=== PATIENT | female | born 1985 | race Caucasian/White ===

== ENCOUNTER 2016-10-28 12:05 | Emergency (ER) | payer BC, MEDICAID ==
[2016-10-28 12:21] VITALS: BP 107/62
[2016-10-28] MEDS ORDERED: Ibuprofen TAB* 400 MG PO ONE (12:33)
--- NOTE | 2016-10-28 12:39 | UC ---
Cardiac HPI - HPI Summary HPI Summary: started with stabbing pleuritic right sided chest pain while at work today a few hours ago. Worse with deep breath or moving arms. No recent cough, no fever , no trauma, no history of heart disease. No palpitations. Got so bad she had to leave work. No new meds, no stomach upset, no indigestion. No recent travel or bedrest - History of Current Complaint Chief Complaint: UCChestPain Stated Complaint: CHEST PAIN Time Seen by Provider: 10/28/16 12:08 Hx Obtained From: Patient Onset/Duration: Gradual Onset, Lasting Hours - 2 Timing: Constant Initial Severity: Mild Current Severity: Moderate Chest Pain Location: Right Anterior Character: Sharp/Stabbing Aggravating: Position, Movement, Deep Breaths Alleviating: Rest, Position Associated Signs & Symptoms: Positive: Chest Pain. Negative: Anxiety, Recent Stress, Headaches, Numbness, Tingling, Weakness, Dizziness, SOB, Palpitations, Cough, Hemoptysis - Risk Factors Pulmonary Embolism Risk Factors: Oral Contraceptives Cardiac Risk Factors: Negative Atrial Fibrillation: Negative TAD Risk Factors: Negative - Allergy/Home Medications Allergies/Adverse Reactions: Allergies Allergy/AdvReac Type Severity Reaction Status Date / Time No Known Allergies Allergy Verified 12/08/13 17:25 Home Medications: Home Medications Sertraline HCl [Zoloft] 150 mg PO DAILY 10/28/16 [History Confirmed 10/28/16] PMH/Surg Hx/FS Hx/Imm Hx Previously Healthy: Yes - Surgical History Surgical History: Yes Surgery Procedure, Year, and Place: T&A-2014 and repair of deviated septum-2014 - Family History Known Family History: Negative: Cardiac Disease, Hypertension - Social History Occupation: Employed Full-time Lives: With Family Alcohol Use: None Substance Use Type: None Smoking Status (MU): Never Smoked Tobacco Review of Systems Constitutional: Negative Skin: Negative Eyes: Negative ENT: Negative Respiratory: Negative Cardiovascular: Chest Pain - under right breast and along right side of sternum Gastrointestinal: Negative Genitourinary: Negative Motor: Negative Neurovascular: Negative Musculoskeletal: Negative Neurological: Negative Psychological: Negative All Other Systems Reviewed And Are Negative: Yes Physical Exam Triage Information Reviewed: Yes Appearance: Well-Appearing, No Pain Distress, Well-Nourished Vital Signs: Initial Vital Signs Temp 98.2 F 10/28/16 12:15 Pulse 57 10/28/16 12:15 Resp 16 10/28/16 12:15 BP 107/62 10/28/16 12:15 Pulse Ox 100 10/28/16 12:15 Vital Signs Reviewed: Yes Eye Exam: Normal ENT Exam: Normal Neck exam: Normal Respiratory: Positive: Lungs clear, Normal breath sounds, No respiratory distress, No accessory muscle use, Other: - mild tenderness along right sternal border Cardiovascular Exam: Normal Cardiovascular: Positive: RRR, No Murmur Abdominal Exam: Normal Abdomen Description: Positive: Nontender, No Organomegaly, Soft. Negative: Distended, Guarding, Hernia @, Hepatomegaly, McBurney's Point Tenderness, Peritoneal Signs, Pulsatile Mass, Splenomegaly Musculoskeletal Exam: Normal Neurological Exam: Normal Psychological Exam: Normal Skin Exam: Normal Diagnostics - Laboratory Diagnostic Studies Completed/Ordered: EKG and CXR normal - Differential Diagnoses - Chest Pain Differential Diagnosis/HQI/PQRI: Chest Wall, Lower Respiratory Infection, Pulmonary Embolism - Clinical Impression Provider Diagnoses: costochondritis Discharge - Discharge Plan Condition: Stable Disposition: HOME Prescriptions: HYDROcodone/ACETAMIN 5-325 MG* [Napoleon 5-325 TAB*] 1 - 2 tab PO Q6H PRN #14 tab MDD 6 tab PRN Reason: Pain Patient Education Materials: Costochondritis (ED) Forms: *Work Release Referrals: Candelaria Reynaga MD [Primary Care Provider] - Additional Instructions: Take ibuprofen 600-800 mg three times a day and apply heat to sore area
--- NOTE | 2016-10-28 13:11 | RAD ---
Indication: Pleuritic chest pain. 2 views of the chest demonstrate no mediastinal shift. Heart is of normal size and configuration. Lung friedman demonstrate no pleural fluid, pneumonia or pneumothorax. No prior study is available for comparison. IMPRESSION: No active cardiopulmonary disease is noted.
== END 2016-10-28 13:22 | disposition home or self-care (01) ==
LOC: UCCORT 12:05
DX: M94.0 Chondrocostal junction syndrome [Tietze] (principal)
CPT/HCPCS: 71020; 93005; 99212; A9270-GY; G0463

== ENCOUNTER 2017-02-09 09:25 | Emergency (ER) | payer BC, MEDICAID ==
[2017-02-09 09:42] VITALS: BP 111/78
[2017-02-09] MEDS ORDERED: Lidocaine 2% W/EPI 1:100,000* 20 ML MDV INJ ONE (10:06)
--- NOTE | 2017-02-09 10:19 | UC ---
Lower Extremity/Ankle HPI - HPI Summary HPI Summary: 31 yo female stepped on glass yesterday fb senastion left foot Td not upto date but she wishes to hold off on updating it today because tomorrow she has egg collection - History of Current Complaint Chief Complaint: Vikas Stated Complaint: PIECE OF GLASS IN LEFT FOOT Time Seen by Provider: 02/09/17 09:50 Hx Obtained From: Patient Hx Last Menstrual Period: 01/27/17 Onset/Duration: Sudden Onset, Lasting Hours Severity Initially: Mild Severity Currently: Mild Pain Intensity: 2 Pain Scale Used: 0-10 Numeric Aggravating Factor(s): Standing, Ambulation Alleviating Factor(s): Rest, Elevation Able to Bear Weight: Yes - Allergies/Home Medications Allergies/Adverse Reactions: Allergies Allergy/AdvReac Type Severity Reaction Status Date / Time No Known Allergies Allergy Verified 02/09/17 09:36 PMH/Surg Hx/FS Hx/Imm Hx Previously Healthy: Yes - Surgical History Surgical History: Yes Surgery Procedure, Year, and Place: T&A-2014 and repair of deviated septum-2014 - Family History Known Family History: Negative: Cardiac Disease, Hypertension, Diabetes - Social History Alcohol Use: None Substance Use Type: None Smoking Status (MU): Never Smoked Tobacco Review of Systems Constitutional: Negative Skin: Negative Eyes: Negative ENT: Negative Respiratory: Negative Cardiovascular: Negative Gastrointestinal: Negative Genitourinary: Negative Motor: Negative Neurovascular: Negative Musculoskeletal: Negative Neurological: Negative Psychological: Negative All Other Systems Reviewed And Are Negative: Yes Physical Exam Triage Information Reviewed: Yes Appearance: Well-Appearing Vital Signs: Initial Vital Signs Temp 98.4 F 02/09/17 09:37 Pulse 62 02/09/17 09:37 Resp 16 02/09/17 09:37 BP 111/78 02/09/17 09:37 Pulse Ox 99 02/09/17 09:37 Vital Signs Reviewed: Yes Eyes: Positive: Conjunctiva Clear ENT: Positive: Hearing grossly normal. Negative: Nasal congestion, Nasal drainage, Trismus, Muffled/hoarse voice Neck: Positive: Supple Respiratory: Positive: Lungs clear, Normal breath sounds, No respiratory distress, No accessory muscle use Cardiovascular: Positive: RRR, No Murmur, Pulses Normal Musculoskeletal: Positive: ROM Intact, No Edema Neurological: Positive: Alert Psychological Exam: Normal Skin Exam: Other - fb left foot Procedures - Procedure Summary Procedure Summary: PROCEDURE: FOREIGN BODY REMOVAL LEFT FOOT TIME OUT STERILE PREP ANEST WITH 0.5 ML OF 2 % LIDO +EPI REMOVED WITH FORCEPS STERILE DRESSING APPLIED TOLERATED PROCEDURE WELL Lower Extremity Course/Dx - Differential Dx/Diagnosis Provider Diagnoses: FOREIGN BODY REMOVAL LEFT FOOT Discharge - Discharge Plan Condition: Stable Disposition: HOME Patient Education Materials: Soft Tissue Foreign Body (ED) Referrals: Candelaria Reynaga MD [Primary Care Provider] - 1 Week (see your MD re updating tenatus shot) Additional Instructions: warm soapy soaks recheck for concerns of infection Images Feet (Multiple View): 1 - fb
== END 2017-02-09 10:25 | disposition home or self-care (01) ==
LOC: UCCORT 09:25
DX: S90.852A Superficial foreign body, left foot, initial encounter (principal); W45.8XXA Other foreign body or object entering through skin, initial encounter; W25.XXXA Contact with sharp glass, initial encounter; Y93.9 Activity, unspecified; Y92.9 Unspecified place or not applicable
CPT/HCPCS: 28190; 99211; G0463

== ENCOUNTER 2017-03-25 08:55 | Emergency (ER) | payer BC, MEDICAID ==
[2017-03-25 09:28] VITALS: BP 117/72
--- NOTE | 2017-03-25 09:50 | UC ---
Eye Complaint HPI - HPI Summary HPI Summary: left eye redness x 2 days + yellow / white discharge no eye pain, no change in vision - History of Current Complaint Chief Complaint: UCEye Stated Complaint: EYE COMPLAINT Time Seen by Provider: 03/25/17 09:42 Hx Obtained From: Patient Hx Last Menstrual Period: 03/17/17 Onset/Duration: Gradual Onset, Lasting Days - 2, Still Present Timing: Constant Severity Initially: Moderate Severity Currently: Moderate Location of Injury: Conjunctiva - left Aggravating Factor(s): Nothing Alleviating Factor(s): Nothing Associated Signs And Symptoms: Positive: Drainage (Clear), Drainage (Purulent) - left eye. Negative: Photophobia, Vision Impairment Bilateral, Vision Impairment Right, Vision Impairment Left, Fever, Swelling - Allergies/Home Medications Allergies/Adverse Reactions: Allergies Allergy/AdvReac Type Severity Reaction Status Date / Time No Known Allergies Allergy Verified 03/25/17 09:24 PMH/Surg Hx/FS Hx/Imm Hx Previously Healthy: Yes - Surgical History Surgical History: Yes Surgery Procedure, Year, and Place: T&A-2014 and repair of deviated septum-2014 - Family History Known Family History: Negative: Cardiac Disease, Hypertension, Diabetes - Social History Alcohol Use: None Substance Use Type: None Smoking Status (MU): Never Smoked Tobacco Review of Systems Constitutional: Negative Skin: Negative Eyes: Drainage - left, Eye Redness - left Respiratory: Negative Cardiovascular: Negative Gastrointestinal: Negative Genitourinary: Negative All Other Systems Reviewed And Are Negative: Yes Physical Exam Triage Information Reviewed: Yes Appearance: Well-Appearing, No Pain Distress, Well-Nourished Vital Signs: Initial Vital Signs Temp 99.2 F 03/25/17 09:24 Pulse 72 03/25/17 09:24 Resp 18 03/25/17 09:24 BP 117/72 03/25/17 09:24 Pulse Ox 100 03/25/17 09:24 Vital Signs Reviewed: Yes Eyes: Positive: Conjunctiva Inflamed - left eye, Discharge - left eye ENT Exam: Normal ENT: Positive: Normal ENT inspection, Hearing grossly normal, Pharynx normal Neck: Positive: Supple, Nontender, No Lymphadenopathy Respiratory: Positive: Chest non-tender, Lungs clear, Normal breath sounds Cardiovascular: Positive: RRR, No Murmur, Pulses Normal Eye Complaint Course/Dx - Differential Dx/Diagnosis Provider Diagnoses: conjunctivitis left eye Discharge - Discharge Plan Condition: Stable Disposition: HOME Prescriptions: Tobramycin 0.3% OPHTH.SEBASTIÁN* 1 drop LEFT EYE Q4H #1 btl Patient Education Materials: Conjunctivitis (ED) Referrals: Candelaria Reynaga MD [Primary Care Provider] - 7 Days
== END 2017-03-25 09:51 | disposition home or self-care (01) ==
LOC: UCCORT 08:55
DX: H10.32 Unspecified acute conjunctivitis, left eye (principal)
CPT/HCPCS: 99212; G0463

== ENCOUNTER 2018-08-03 08:10 | Emergency (ER) | payer BC ==
[2018-08-03 08:24] VITALS: BP 136/77
--- NOTE | 2018-08-03 08:49 | UC ---
Skin Complaint HPI - HPI Summary HPI Summary: The patient is a 33-year-old female that is 2 weeks status post transabdominal hysterectomy for cervical cancer. 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 She states that she was told it was a superficial thrombophlebitis and she was told to apply heat. She states she was also told to come here in 1 week if she is not better. She states that her symptoms have not improved and in fact are worse. She denies any chest pain or shortness of breath. She is also complaining of foot pain after stepping on a children's toy. SHe states that has altered her gait. - History of Current Complaint Chief Complaint: UCGeneralIllness Time Seen by Provider: 08/03/18 08:35 Stated Complaint: LEFT LEG PAIN, RIGHT FOOT PAIN Hx Obtained From: Patient Hx Last Menstrual Period: 03/17/17 Onset/Duration: Gradual Onset Skin Exposure Onset/Duration: Days Ago Timing: Constant Onset Severity: Mild Current Severity: Moderate Pain Intensity: 5 Pain Scale Used: 0-10 Numeric Location: Discrete Character: Pain, Raised Aggravating Factor(s): Touch Alleviating Factor(s): OTC Meds Associated Signs & Symptoms: Positive: Tenderness. Negative: Nausea, Vomiting, Numbness, Thirst, Diaphoresis, Weakness, Pallor, Shivering, Difficulty Breathing , Fever, Chills, Cough, Wheezing, Chest Pain, Hoarseness, Throat Tightening, Rash, Abdominal Pain, Lightheadedness, Syncope, Drainage, Bruising, Red Streaks , Joint Swelling - Allergy/Home Medications Allergies/Adverse Reactions: Allergies Allergy/AdvReac Type Severity Reaction Status Date / Time Penicillins Allergy Severe Anaphylatic Verified 08/03/18 08:25 Shock Home Medications: Home Medications Docusate CAP* [Colace Cap*] 100 mg PO BID 08/03/18 [History Confirmed 08/03/18] Fluticas/Salmet 230/21 HFA(NF) [Advair HFA 23O/21 (NF)] 1 puff INH 08/03/18 [ History] Polyethylene Glycol [Polyox Wsr-301] 1 gm MC 08/03/18 [History] Psyllium SHADE* [Metamucil SHADE*] 2 pkt PO DAILY 08/03/18 [History Confirmed ] Senna TAB* [Senokot TAB*] 1 tab PO DAILY 08/03/18 [History Confirmed 08/03/18] Triamcinolone 0.1% Oint (NF) [Triamcinolone Acetonide] 08/03/18 [History] Review of Systems Constitutional: Negative Skin: Negative Eyes: Negative ENT: Negative Respiratory: Negative Cardiovascular: Negative Gastrointestinal: Negative Genitourinary: Negative Motor: Negative Neurovascular: Negative Musculoskeletal: Arthralgia, Myalgia Neurological: Negative Psychological: Negative All Other Systems Reviewed And Are Negative: Yes PMH/Surg Hx/FS Hx/Imm Hx Previously Healthy: Yes Cancer History: Cervical Cancer - Surgical History Surgical History: Yes Surgery Procedure, Year, and Place: T&A-2014 and repair of deviated septum- 2014. Hysterectomy - Family History Known Family History: Positive: Hypertension, Other - no fhx DVT Negative: Cardiac Disease, Diabetes - Social History Alcohol Use: None Substance Use Type: None Smoking Status (MU): Never Smoked Tobacco Physical Exam Triage Information Reviewed: Yes Appearance: Well-Appearing, No Pain Distress, Well-Nourished Vital Signs: Initial Vital Signs Temp 98.1 F 08/03/18 08:20 Pulse 73 08/03/18 08:20 Resp 16 08/03/18 08:20 BP 136/77 08/03/18 08:20 Pulse Ox 100 08/03/18 08:20 Eye Exam: Normal ENT: Positive: Hearing grossly normal. Negative: Nasal congestion, Nasal drainage, Trismus, Hoarse voice Respiratory: Positive: Lungs clear, Normal breath sounds, No respiratory distress, No accessory muscle use Cardiovascular: Positive: RRR, No Murmur Musculoskeletal: Positive: ROM Intact Neurological: Positive: Alert Psychological Exam: Normal Skin Exam: Other - see image Diagnostics - Radiology No standard instances Xray Interpretation: No Acute Changes - right foot neg, venous doppler left leg -neg Radiology Interpretation Completed By: Radiologist Course/Dx - Course Course Of Treatment: pt declines post op shoe - Diagnoses Provider Diagnoses: left leg superficial thrombophebitis. right foot contusion Discharge - Sign-Out/Discharge Documenting (check all that apply): Patient Departure All imaging exams completed and their final reports reviewed: Yes - Discharge Plan Condition: Stable Disposition: HOME Patient Education Materials: Contusion in Adults (ED), Superficial Thrombophlebitis (ED) Referrals: No Primary Care Phys,NOPCP [Primary Care Provider] - Additional Instructions: continue current treatment left thigh recheck for worsening symptom recheck in 3-7 days if not improving right foot rest elevate ice - Billing Disposition and Condition Condition: STABLE Disposition: Home Images Feet (Multiple View): 1 - tender/swollen/skin intact Front/Back of Body, Lg (Trego): 1 - swollen/superficial veins prominent and tender
--- NOTE | 2018-08-03 09:01 | RAD ---
HISTORY: injury COMPARISONS: None VIEWS: 3 , Frontal, lateral, and oblique views of the right foot FINDINGS: BONE DENSITY: Normal. BONES: There is no displaced fracture. There is a small plantar calcaneal enthesophyte. JOINTS: There is no arthropathy. ALIGNMENT: There is no dislocation. SOFT TISSUES: Unremarkable. OTHER FINDINGS: None. IMPRESSION: NO ACUTE OSSEOUS INJURY. IF SYMPTOMS PERSIST, RECOMMEND REPEAT IMAGING.
--- NOTE | 2018-08-03 09:11 | RAD ---
HISTORY: left thigh pain and swelling COMPARISONS: None relevant TECHNIQUE: Multiple transverse and longitudinal ultrasound images were obtained of the left lower extremity from the level of the common femoral vein inferiorly through to the infrapopliteal veins using grayscale, color Doppler, and spectral Doppler imaging with and without compression and with augmentation. Comparison images were obtained of the contralateral common femoral vein. FINDINGS: VEINS: The venous system of the left lower extremity is compressible throughout its course, with normal flow on color Doppler imaging and normal response to augmentation on spectral Doppler imaging. SOFT TISSUES: Unremarkable. OTHER FINDINGS: None. IMPRESSION: NO LEFT LOWER EXTREMITY DEEP VEIN THROMBOSIS
== END 2018-08-03 09:36 | disposition home or self-care (01) ==
LOC: UCCORT 08:10
DX: I80.02 Phlebitis and thrombophlebitis of superficial vessels of left lower extremity (principal); S90.31XA Contusion of right foot, initial encounter; W22.8XXA Striking against or struck by other objects, initial encounter; Y93.01 Activity, walking, marching and hiking; Y92.9 Unspecified place or not applicable; Z85.41 Personal history of malignant neoplasm of cervix uteri; Z88.0 Allergy status to penicillin
CPT/HCPCS: 99212; G0463